=== PATIENT | female | born 1960 | race Two or more races ===

== ENCOUNTER 2017-10-19 14:01 | Outpatient (CLI) | payer OTHER | END 2017-10-19 15:48 | disposition home or self-care (01) | LOC: RAD 501 14:01 | DX: J45.909 Unspecified asthma, uncomplicated (principal); C50.919 Malignant neoplasm of unspecified site of unspecified female breast ==

== ENCOUNTER 2024-08-31 11:54 | Inpatient (IN) | payer OTHER ==
[~2024-08-31] VITALS: Ht 162.6 cm; Wt 63.5 kg
--- NOTE | 2024-08-31 12:47 | NUR ---
PACIENTE ALERTA Y ORIENTADA X 3. REFIERE DOLOR EN AREA PELVICA LADO DERECHO.
[2024-08-31] MEDS ORDERED: CLONAZEPAM0.5 MG PO (12:50)
[2024-08-31] MEDS ORDERED: CRESTOR40 MG PO (12:51)
[2024-08-31] MEDS ORDERED: CELEXA20 MG PO (12:51)
[2024-08-31] MEDS ORDERED: MEPERIDINE HCL/PF 25 MG/ML VIAL IM STA (14:10)
[2024-08-31] MEDS ORDERED: RINGERS SOLUTION,LACTATED 1,000 ML IV STA (14:10)
--- NOTE | 2024-08-31 14:26 | NUR ---
SE ORIENTA PTE SOBRE TX A SEGUIR, LA MISMA REFIERE ENTENDER. SE LESLIE MUESTRA DE LAB, SE CANALIZA Y SE ADMINISTRA MED [facility]
[2024-08-31 14:50] LABS: INR 1.21; PARTIAL THROMBOPLASTIN TIME 27.1 SECONDS (22.0-34.0)
[2024-08-31 15:04] LABS: ALBUMIN 3.4 gm/dL (3.4-5.0); BILIRUBIN TOTAL 0.75 mg/dL (0.3-1.2); BILIRUBIN,CONJUGATED 0.32 mg/dL (0.0-0.2); BILIRUBIN,UNCONJUGATED 0.43 mg/dL (0.0-0.6); CALCIUM 9.2 mg/dL (8.5-10.1); CREATININE SERUM 1.41 mg/dL (0.55-1.02); GFR 37.31; POTASSIUM 3.31 mEq/L (3.5-5.1); TOTAL PROTEIN 7.2 gm/dL (6.4-8.2)
[2024-08-31 15:59] LABS: HEMOGLOBIN 12.9 g/dL (12.0-15.00); MEAN CELL VOLUME 83.4 fL (80.00-100.00); MEAN CORPUSCULAR HEMOGLOBIN 27.6 pg (27.00-32.0); MEAN CORPUSCULAR HGB CONC 33.2 g/dl (32.0-36.0); PLATELET COUNT 205 K/uL (150-450); RED BLOOD COUNT 4.68 M/uL (4.00-6.00); RED CELL DISTRIBUTION WIDTH 14.6 % (11.5-14.5)
[2024-08-31] MEDS ORDERED: MORPHINE SULFATE 4 MG/ML VIAL IV ONE (18:15)
--- NOTE | 2024-08-31 18:26 | NUR ---
SE ADMINISTRA MEDICAMENTO [facility] MED[facility].
[2024-08-31] MEDS ORDERED: PIPERACILLIN/TAZOBACTAM SODIUM 3.375 GM in DEXTROSE 5 % IN WATER 100 ML IV SCH (18:37)
[2024-08-31] MEDS ORDERED: 0.9 % SODIUM CHLORIDE 1,000 ML IV SCH (18:45)
[2024-08-31] MEDS ORDERED: ACETAMINOPHEN 500 MG GEL..CAP PO PRN (18:45)
[2024-08-31] MEDS ORDERED: KETOROLAC TROMETHAMINE 15 MG VIAL IU ONE (18:45)
[2024-08-31] MEDS ORDERED: ONDANSETRON HCL 4 MG in 0.9 % SODIUM CHLORIDE 50 ML IV PRN (18:45)
[2024-08-31] MEDS ORDERED: MORPHINE SULFATE 2 MG/ML SYRINGE IV PRN (18:45)
[2024-08-31 21:15] VITALS: BP 100/60
[2024-09-01 00:37] VITALS: BP 91/50; O2SAT 95
[2024-09-01 09:23] VITALS: BP 89/57; O2SAT 99
[2024-09-01] MEDS ORDERED: FAMOTIDINE/PF 20 MG/2 ML VIAL IV SCH (11:13)
[2024-09-01] MEDS ORDERED: MORPHINE SULFATE 4 MG/ML CARTRIDGE IV PRN (11:30)
[2024-09-01] MEDS ORDERED: PIPERACILLIN/TAZOBACTAM SODIUM 2.25 GM VIAL IV SCH (12:00)
[2024-09-01] MEDS ORDERED: ORPHENADRINE CITRATE 30 MG/ML AMPUL IV ONE (12:00)
[2024-09-01] MEDS ORDERED: LIDOCAINE HCL 1% 20 ML VIAL IJ ONE (14:45)
[2024-09-01] MEDS ORDERED: CLONAZEPAM 0.5 MG TABLET PO SCH (17:00)
[2024-09-01] MEDS ORDERED: GABAPENTIN 300 MG CAPSULE PO SCH (17:00)
[2024-09-01 17:23] VITALS: BP 98/58; O2SAT 93
[2024-09-01 18:09] LABS: ALBUMIN 2.7 gm/dL (3.4-5.0); BILIRUBIN TOTAL 0.47 mg/dL (0.3-1.2); CALCIUM 8.1 mg/dL (8.5-10.1); CREATININE SERUM 1.11 mg/dL (0.55-1.02); GFR 49.18; GLOBULINA 3.2 G/DL (2.4-3.5); POTASSIUM 3.2 mEq/L (3.5-5.1); TOTAL PROTEIN 5.9 gm/dL (6.4-8.2)
[2024-09-02 01:36] VITALS: BP 138/62; O2SAT 98
[2024-09-02 08:00] VITALS: BP 136/82; O2SAT 96
[2024-09-02] MEDS ORDERED: ENOXAPARIN SODIUM 40 MG/0.4 ML SYRINGE SUBCUTANEO SCH (09:00)
[2024-09-02 11:05] LABS: HEMATOCRIT 40.2 % (36.0-45.00); HEMOGLOBIN 13.4 g/dL (12.0-15.00); MEAN CELL VOLUME 82.6 fL (80.00-100.00); MEAN CORPUSCULAR HEMOGLOBIN 27.4 pg (27.00-32.0); MEAN CORPUSCULAR HGB CONC 33.2 g/dl (32.0-36.0); PLATELET COUNT 215 K/uL (150-450); RED BLOOD COUNT 4.87 M/uL (4.00-6.00); RED CELL DISTRIBUTION WIDTH 14.9 % (11.5-14.5)
[2024-09-02 11:56] LABS: ALBUMIN 2.8 gm/dL (3.4-5.0); BILIRUBIN TOTAL 0.48 mg/dL (0.3-1.2); CALCIUM 8.6 mg/dL (8.5-10.1); CREATININE SERUM 0.61 mg/dL (0.55-1.02); GFR 98.13; GLOBULINA 3.6 G/DL (2.4-3.5); POTASSIUM 3.46 mEq/L (3.5-5.1); TOTAL PROTEIN 6.4 gm/dL (6.4-8.2)
[2024-09-02] MEDS ORDERED: ACETAMINOPHEN 500 MG GEL..CAP PO SCH (14:00)
[2024-09-02 16:00] VITALS: BP 154/70; O2SAT 94
[2024-09-03 02:09] VITALS: BP 125/76; O2SAT 92
[2024-09-03 08:00] VITALS: BP 142/70; O2SAT 98
[2024-09-03 16:16] VITALS: BP 157/90; O2SAT 95
[2024-09-03] MEDS ORDERED: PIPERACILLIN/TAZOBACTAM SODIUM 3.375 GM VIAL IV SCH (18:00)
[2024-09-04 01:37] VITALS: BP 134/80; O2SAT 98
[2024-09-04 08:00] VITALS: BP 151/74; O2SAT 93
[2024-09-04 16:33] VITALS: BP 168/76; O2SAT 98
[2024-09-04 18:34] LABS: HEMATOCRIT 39.3 % (36.0-45.00); MEAN CORPUSCULAR HEMOGLOBIN 26.7 pg (27.00-32.0); PLATELET COUNT 294 K/uL (150-450); RED BLOOD COUNT 4.85 M/uL (4.00-6.00); RED CELL DISTRIBUTION WIDTH 15.7 % (11.5-14.5)
[2024-09-04 18:49] LABS: ALBUMIN 2.6 gm/dL (3.4-5.0); BILIRUBIN TOTAL 0.48 mg/dL (0.3-1.2); CALCIUM 9.2 mg/dL (8.5-10.1); CREATININE SERUM 0.41 mg/dL (0.55-1.02); GFR 155.21; GLOBULINA 3.3 G/DL (2.4-3.5); POTASSIUM 3.25 mEq/L (3.5-5.1); TOTAL PROTEIN 5.9 gm/dL (6.4-8.2)
[2024-09-05] MEDS ORDERED: ENALAPRILAT DIHYDRATE 1.25 MG/ML VIAL IV STA (02:17)
[2024-09-05 02:25] VITALS: BP 185/97; O2SAT 92
[2024-09-05 08:00] VITALS: BP 143/66; O2SAT 94
[2024-09-05] MEDS ORDERED: DIATRIZOATE MEGLUMINE, SODIUM 30 ML BOTTLE PO NR (10:45)
[2024-09-05 16:00] VITALS: BP 164/85; O2SAT 97
[2024-09-06 00:41] VITALS: BP 138/84; O2SAT 94
[2024-09-06 07:08] LABS: HEMATOCRIT 35.7 % (36.0-45.00); HEMOGLOBIN 11.9 g/dL (12.0-15.00); MEAN CELL VOLUME 81.5 fL (80.00-100.00); MEAN CORPUSCULAR HEMOGLOBIN 27.2 pg (27.00-32.0); MEAN CORPUSCULAR HGB CONC 33.3 g/dl (32.0-36.0); PLATELET COUNT 286 K/uL (150-450); RED BLOOD COUNT 4.38 M/uL (4.00-6.00); RED CELL DISTRIBUTION WIDTH 14.9 % (11.5-14.5)
[2024-09-06 08:15] VITALS: BP 142/81; O2SAT 96
[2024-09-06 08:28] LABS: CALCIUM 8.6 mg/dL (8.5-10.1); CREATININE SERUM 0.36 mg/dL (0.55-1.02); GFR 180.34; POTASSIUM 3.04 mEq/L (3.5-5.1)
[2024-09-06] MEDS ORDERED: POTASSIUM CHLORIDE 20MEQ/100ML H2O PB IV ONE (13:30)
[2024-09-06 16:00] VITALS: BP 169/83; O2SAT 97
[2024-09-06] MEDS ORDERED: POTASSIUM CHLORIDE 20MEQ/100ML H2O PB IV SCH (17:00)
[2024-09-06] MEDS ORDERED: FAMOTIDINE/PF 20 MG/2 ML VIAL IV SCH (21:20)
[2024-09-07 00:17] VITALS: BP 136/83; O2SAT 94
[2024-09-07 07:38] LABS: HEMATOCRIT 36.8 % (36.0-45.00); HEMOGLOBIN 12.1 g/dL (12.0-15.00); MEAN CELL VOLUME 81.9 fL (80.00-100.00); MEAN CORPUSCULAR HEMOGLOBIN 26.8 pg (27.00-32.0); MEAN CORPUSCULAR HGB CONC 32.8 g/dl (32.0-36.0); PLATELET COUNT 348 K/uL (150-450); RED CELL DISTRIBUTION WIDTH 15.1 % (11.5-14.5)
[2024-09-07 08:00] VITALS: BP 137/81; O2SAT 97
[2024-09-07 08:59] LABS: CALCIUM 8.2 mg/dL (8.5-10.1); CREATININE SERUM 0.38 mg/dL (0.55-1.02); GFR 169.44; POTASSIUM 3.01 mEq/L (3.5-5.1)
[2024-09-07] MEDS ORDERED: CYCLOBENZAPRINE HCL 5 MG TABLET PO STA (09:13)
[2024-09-07] MEDS ORDERED: MAGNESIUM SULFATE IN WATER 50 ML IV NR (10:00)
[2024-09-07] MEDS ORDERED: POTASSIUM CHLORIDE 20MEQ/100ML H2O PB IV SCH (10:00)
[2024-09-07] MEDS ORDERED: POTASSIUM CHLORIDE 8 MEQ TABLET PO ONE (14:00)
== END 2024-09-07 15:00 | disposition home or self-care (01) | DRG 330 ==
LOC: ER 11:56 → SEC-K 19:34 → O/R 19:34 → SURH 09-01 15:59
PROVIDERS: General Practice; Student in an Organized Health Care Education/Training Program; Surgery; ADMIT Student in an Organized Health Care Education/Training Program; ATTEND Student in an Organized Health Care Education/Training Program
PROC: BW21ZZZ Computerized Tomography (CT Scan) of Abdomen and Pelvis (ICD-10-PCS; 2024-08-31)
PROC: 0DTJ4ZZ Resection of Appendix, Percutaneous Endoscopic Approach (ICD-10-PCS; 2024-09-01)
PROC: 0DBH4ZZ Excision of Cecum, Percutaneous Endoscopic Approach (ICD-10-PCS; principal; 2024-09-01 14:15)
PROC: BW21YZZ Computerized Tomography (CT Scan) of Abdomen and Pelvis using Other Contrast (ICD-10-PCS; 2024-09-04)
DX: K35.32 Acute appendicitis with perforation, localized peritonitis, and gangrene, without abscess (principal); K56.7 Ileus, unspecified; N17.9 Acute kidney failure, unspecified; K91.89 Other postprocedural complications and disorders of digestive system; E87.6 Hypokalemia; D72.0 Genetic anomalies of leukocytes; E78.5 Hyperlipidemia, unspecified